=== PATIENT | male | born 1955 | race Caucasian/White ===

== ENCOUNTER 2022-04-21 09:09 | Inpatient (IN) | payer MEDICARE, OTHER ==
[~2022-04-21] VITALS: Ht 172.7 cm; Wt 70.3 kg
[2022-04-21] MEDS ORDERED: ONDANSETRON HCL INJ 2MG/ML 2ML 2 MG/ML VIAL IV STA (09:29)
[2022-04-21] MEDS ORDERED: Morphine 4mg INJECTION 4 MG/ML INJ IV ONE (09:30)
[2022-04-21 10:23] LABS: CLARITY,URINE CLOUDY (CLEAR); COLOR,URINE YELLOW (YELLOW); KETONES,URINE NEGATIVE (NEGATIVE); LEUKOCYTE ESTERASE ,URINE NEGATIVE (NEGATIVE); NITRITE,URINE NEGATIVE (NEGATIVE); PROTEIN,URINE DIPSTICK NEGATIVE (NEGATIVE); URINE UROBILINOGEN 1 mg/dL (0.2 - 1)
[2022-04-21 10:41] LABS: BACTERIA,URINE FEW /HPF; EPITHELIAL CELLS,URINE FEW /LPF; RBC,URINE 0-5 /HPF (0-5)
[2022-04-21 10:52] LABS: BASOPHILS # (AUTO) 0.1 (0.0-0.1); BASOPHILS % 0.9 % (0.0-1.0); EOSINOPHILS # (AUTO) 0.3 (0.0-0.4); EOSINOPHILS % 3.8 % (0.0-6.0); HEMATOCRIT 42.3 % (38.2-49.6); HEMOGLOBIN 12.9 g/dL (14.0-18.0); LYMPHOCYTES # (AUTO) 1.4 (1.0-3.2); LYMPHOCYTES % 21.5 % (18.0-39.1); MEAN CORPUSCULAR HEMOGLOBIN 23.4 pg (28-32); MEAN CORPUSCULAR HGB CONC 30.5 g/dL (31-35); MEAN CORPUSCULAR VOLUME 76.8 fL (81-99); MONOCYTES # (AUTO) 0.6 (0.2-0.8); MONOCYTES % 8.3 % (4.4-11.3); NEUTROPHILS # (AUTO) 4.3 (2.1-6.9); NEUTROPHILS % 65.2 % (38.7-80.0); PLATELET COUNT 375 x10e3/uL (140-360); RED BLOOD COUNT 5.51 x10e6/uL (4.3-5.7); RED CELL DISTRIBUTION WIDTH 15.4 % (11.7-14.4)
[2022-04-21 11:05] LABS: INR 0.85; PROTHROMBIN TIME 12.4 seconds (11.9-14.5)
[2022-04-21 11:06] LABS: PARTIAL THROMBOPLASTIN TIME 30.8 seconds (23.8-35.5)
[2022-04-21] MEDS ORDERED: Clindamycin INJ 150 MG/ML 600 MG Vial ONE (11:08)
[2022-04-21] MEDS ORDERED: SODIUM CHLORIDE 0.9% 100 ML ONE (11:08)
[2022-04-21 11:10] LABS: ALBUMIN 3.6 g/dL (3.5-5.0); ALBUMIN/GLOBULIN RATIO 1.2 (0.8-2.0); ANION GAP 13.6 mmol/L (8-16); CALCIUM 8.6 mg/dL (8.4-10.2); CREATININE, SERUM 0.85 mg/dL (0.72-1.25); POTASSIUM 4.6 mmol/L (3.5-5.1)
[2022-04-21] MEDS: SODIUM CHLORIDE 0.9% 1000ML 1,000 ML IV SCH (12:49)
[2022-04-21 13:08] VITALS: BP_SYST 119; BP_DIAS 55; BP_DIAS 56
[2022-04-21] MEDS ORDERED: tylenol #3 PO (15:09)
[2022-04-21] MEDS ORDERED: PROVENTIL HFA6.7 GM INH (15:09)
[2022-04-21] MEDS ORDERED: TRELEGY ELLIPT1 EACH IH (15:09)
[2022-04-21] MEDS: Morphine 4mg INJECTION 4 MG/ML INJ IV PRN ×2 (17:14→23:45)
[2022-04-21] MEDS: CLINDAMYCIN 600MG / 50ML 50 ML IV SCH ×2 (18:26→23:48)
[2022-04-21] MEDS ORDERED: ACETAMINOPHEN 325 MG TAB PO PRN (19:45)
[2022-04-21 20:05] VITALS: BP 119/68
[2022-04-21] MEDS: ALBUTEROL/IPRATROPIUM 3 ML NEB NEB PRN (20:10)
[2022-04-21] MEDS ORDERED: HOME MEDICATION--PATIENTS OWN INH PRN (20:30)
[2022-04-21 21:12] VITALS: BP 119/68
[2022-04-22] VITALS (9 sets, daily range): BP systolic 94–134; BP diastolic 56–70
[2022-04-22] MEDS: SODIUM CHLORIDE 0.9% 1000ML 1,000 ML IV SCH ×3 (01:05→14:25)
[2022-04-22] MEDS: CLINDAMYCIN 600MG / 50ML 50 ML IV SCH ×4 (05:43→23:22)
[2022-04-22 05:55] LABS: BASOPHILS # (AUTO) 0.1 (0.0-0.1); BASOPHILS % 0.7 % (0.0-1.0); EOSINOPHILS # (AUTO) 0.2 (0.0-0.4); EOSINOPHILS % 3.1 % (0.0-6.0); HEMATOCRIT 38.4 % (38.2-49.6); HEMOGLOBIN 11.4 g/dL (14.0-18.0); LYMPHOCYTES # (AUTO) 1.6 (1.0-3.2); LYMPHOCYTES % 23.7 % (18.0-39.1); MEAN CORPUSCULAR HEMOGLOBIN 22.8 pg (28-32); MEAN CORPUSCULAR HGB CONC 29.7 g/dL (31-35); MEAN CORPUSCULAR VOLUME 76.8 fL (81-99); MONOCYTES # (AUTO) 0.7 (0.2-0.8); MONOCYTES % 10.3 % (4.4-11.3); NEUTROPHILS # (AUTO) 4.2 (2.1-6.9); NEUTROPHILS % 61.9 % (38.7-80.0); PLATELET COUNT 333 x10e3/uL (140-360); RED CELL DISTRIBUTION WIDTH 15.3 % (11.7-14.4)
[2022-04-22 06:24] LABS: ANION GAP 12.4 mmol/L (8-16); CALCIUM 8.1 mg/dL (8.4-10.2); CREATININE, SERUM 0.84 mg/dL (0.72-1.25); POTASSIUM 4.4 mmol/L (3.5-5.1)
[2022-04-22 06:49] LABS: MAGNESIUM 1.9 MG/DL (1.3-2.1)
[2022-04-22] MEDS: NICOTINE 14 MG/EA PATCH TOP SCH (08:20)
[2022-04-22] MEDS: DOCUSATE SODIUM 100 MG CAP PO SCH (08:20)
[2022-04-22] MEDS: ONDANSETRON HCL INJ 2MG/ML 2ML 2 MG/ML VIAL IV PRN ×3 (08:20→23:23)
[2022-04-22] MEDS: SENNOSIDES 8.6 MG TAB PO SCH (08:20)
[2022-04-22] MEDS: Morphine 4mg INJECTION 4 MG/ML INJ IV PRN ×3 (08:21→23:23)
[2022-04-22] MEDS: VILANTEROL INH SCH (08:29)
[2022-04-22] MEDS: FLUTICASONE FUROATE INH SCH (08:29)
[2022-04-22] MEDS: UMECLIDINIUM INH SCH (08:29)
[2022-04-22] MEDS ORDERED: FERROUS SULFATE 325 MG TAB PO SCH (09:30)
[2022-04-22 12:35] LABS: FERRITIN 118.67 ng/mL (21.81-274.66)
[2022-04-22] MEDS ORDERED: FENTANYL CITRATE/PF 100MCG/2 ML INJ ONE (13:55)
[2022-04-22] MEDS ORDERED: MIDAZOLAM HCL 2 MG/2 ML VIAL ONE (13:55)
[2022-04-22] MEDS ORDERED: NEOSTIGMINE 1 MG/ML 10ML VIAL ONE (15:29)
[2022-04-22] MEDS ORDERED: BUPIVACAINE HC 0.75% PF 10ML VIAL INJ ONE ×2 (15:29→16:07)
[2022-04-22] MEDS ORDERED: LIDOCAINE HCL 2% LOCAL INJ 5 ML SDV VIAL INJ ONE (17:13)
[2022-04-22] MEDS ORDERED: POVIDONE IODINE 0.05% 0.05 % ML PO ONE (17:13)
[2022-04-22] MEDS ORDERED: PROPOFOL IV EMULSION 10 MG/ML 20 ML VIAL ONE (17:13)
[2022-04-22] MEDS ORDERED: ONDANSETRON HCL INJ 2MG/ML 2ML 2 MG/ML VIAL ONE (17:13)
[2022-04-22] MEDS ORDERED: DEXAMETHASONE SOD PHOS INJ 4 MG/ML SDV ONE (17:13)
[2022-04-22] MEDS ORDERED: SEVOFLURANE INHAL SOLN 250 ML PEN BTL ONE (17:13)
[2022-04-22] MEDS ORDERED: ACETAMINOPHEN/CODEINE 300MG - 30MG TAB PO PRN (18:00)
[2022-04-22] MEDS ORDERED: BACITRACIN ZINC 15 GM OINT TOP SCH (18:30)
[2022-04-22] MEDS: ALBUTEROL/IPRATROPIUM 3 ML NEB NEB PRN (19:56)
[2022-04-23] MEDS: ALBUTEROL/IPRATROPIUM 3 ML NEB NEB PRN (00:05)
[2022-04-23] MEDS: SODIUM CHLORIDE 0.9% 1000ML 1,000 ML IV SCH ×2 (04:52→22:14)
[2022-04-23 05:18] VITALS: BP 110/65
[2022-04-23] MEDS: ONDANSETRON HCL INJ 2MG/ML 2ML 2 MG/ML VIAL IV PRN ×3 (06:37→17:40)
[2022-04-23] MEDS: Morphine 4mg INJECTION 4 MG/ML INJ IV PRN ×4 (06:37→22:15)
[2022-04-23 06:38] LABS: BASOPHILS % 0.3 % (0.0-1.0); HEMATOCRIT 38.7 % (38.2-49.6); HEMOGLOBIN 11.4 g/dL (14.0-18.0); LYMPHOCYTES # (AUTO) 0.8 (1.0-3.2); LYMPHOCYTES % 13.4 % (18.0-39.1); MEAN CORPUSCULAR HEMOGLOBIN 23.1 pg (28-32); MEAN CORPUSCULAR HGB CONC 29.5 g/dL (31-35); MEAN CORPUSCULAR VOLUME 78.5 fL (81-99); MONOCYTES # (AUTO) 0.5 (0.2-0.8); MONOCYTES % 8.1 % (4.4-11.3); NEUTROPHILS # (AUTO) 4.5 (2.1-6.9); NEUTROPHILS % 77.5 % (38.7-80.0); PLATELET COUNT 338 x10e3/uL (140-360); RED BLOOD COUNT 4.93 x10e6/uL (4.3-5.7); RED CELL DISTRIBUTION WIDTH 15.4 % (11.7-14.4)
[2022-04-23] MEDS: CLINDAMYCIN 600MG / 50ML 50 ML IV SCH ×3 (06:38→17:39)
[2022-04-23 07:14] LABS: ALBUMIN/GLOBULIN RATIO 0.9 (0.8-2.0); ANION GAP 13.9 mmol/L (8-16); CALCIUM 8.4 mg/dL (8.4-10.2); CREATININE, SERUM 0.77 mg/dL (0.72-1.25); MAGNESIUM 1.9 MG/DL (1.3-2.1); POTASSIUM 4.9 mmol/L (3.5-5.1)
[2022-04-23 08:13] VITALS: BP 112/65
[2022-04-23 08:21] VITALS: BP 112/65
[2022-04-23] MEDS: FLUTICASONE FUROATE INH SCH (09:00)
[2022-04-23] MEDS: VILANTEROL INH SCH (09:00)
[2022-04-23] MEDS: UMECLIDINIUM INH SCH (09:00)
[2022-04-23] MEDS: FERROUS SULFATE 325 MG TAB PO SCH (09:24)
[2022-04-23] MEDS: NICOTINE 14 MG/EA PATCH TOP SCH (09:24)
[2022-04-23] MEDS: DOCUSATE SODIUM 100 MG CAP PO SCH (09:24)
[2022-04-23] MEDS: SENNOSIDES 8.6 MG TAB PO SCH (09:24)
[2022-04-23] MEDS: BACITRACIN ZINC 15 GM OINT TOP SCH (09:25)
[2022-04-23 12:32] VITALS: BP 115/71
[2022-04-23 16:59] VITALS: BP 107/56
[2022-04-23 20:00] VITALS: BP 132/61
[2022-04-24] VITALS (9 sets, daily range): BP systolic 102–119; BP diastolic 57–70
[2022-04-24] MEDS: CLINDAMYCIN 600MG / 50ML 50 ML IV SCH ×5 (00:08→23:54)
[2022-04-24] MEDS: Morphine 4mg INJECTION 4 MG/ML INJ IV PRN ×6 (02:33→23:54)
[2022-04-24] MEDS: SODIUM CHLORIDE 0.9% 1000ML 1,000 ML IV SCH ×2 (06:54→23:15)
[2022-04-24] MEDS: DOCUSATE SODIUM 100 MG CAP PO SCH (08:44)
[2022-04-24] MEDS: FERROUS SULFATE 325 MG TAB PO SCH (08:44)
[2022-04-24] MEDS: NICOTINE 14 MG/EA PATCH TOP SCH (08:44)
[2022-04-24] MEDS: SENNOSIDES 8.6 MG TAB PO SCH (08:44)
[2022-04-24] MEDS: FLUTICASONE FUROATE INH SCH (08:45)
[2022-04-24] MEDS: UMECLIDINIUM INH SCH (08:45)
[2022-04-24] MEDS: VILANTEROL INH SCH (08:45)
[2022-04-24] MEDS: BACITRACIN ZINC 15 GM OINT TOP SCH (09:00)
[2022-04-24] MEDS: ALBUTEROL/IPRATROPIUM 3 ML NEB NEB PRN (19:15)
[2022-04-25] VITALS (8 sets, daily range): BP systolic 104–133; BP diastolic 62–81
[2022-04-25] MEDS: Morphine 4mg INJECTION 4 MG/ML INJ IV PRN ×6 (04:46→22:14)
[2022-04-25] MEDS: CLINDAMYCIN 600MG / 50ML 50 ML IV SCH ×4 (06:08→23:23)
[2022-04-25] MEDS: FLUTICASONE FUROATE INH SCH (09:00)
[2022-04-25] MEDS: VILANTEROL INH SCH (09:00)
[2022-04-25] MEDS: UMECLIDINIUM INH SCH (09:00)
[2022-04-25] MEDS: ONDANSETRON HCL INJ 2MG/ML 2ML 2 MG/ML VIAL IV PRN ×3 (09:37→17:57)
[2022-04-25] MEDS: DOCUSATE SODIUM 100 MG CAP PO SCH (09:43)
[2022-04-25] MEDS: FERROUS SULFATE 325 MG TAB PO SCH (09:44)
[2022-04-25] MEDS: NICOTINE 14 MG/EA PATCH TOP SCH (09:44)
[2022-04-25] MEDS: SENNOSIDES 8.6 MG TAB PO SCH (09:44)
[2022-04-25] MEDS: BACITRACIN ZINC 15 GM OINT TOP SCH (09:47)
[2022-04-25] MEDS: ALBUTEROL/IPRATROPIUM 3 ML NEB NEB PRN (10:49)
[2022-04-25] MEDS: SODIUM CHLORIDE 0.9% 1000ML 1,000 ML IV SCH ×2 (21:35→22:25)
[2022-04-26] VITALS: BP 114/73
[2022-04-26] MEDS: Morphine 4mg INJECTION 4 MG/ML INJ IV PRN ×3 (02:19→09:58)
[2022-04-26 04:00] VITALS: BP 129/69
[2022-04-26] MEDS: CLINDAMYCIN 600MG / 50ML 50 ML IV SCH (06:11)
[2022-04-26 06:44] LABS: BASOPHILS # (AUTO) 0.1 (0.0-0.1); BASOPHILS % 0.9 % (0.0-1.0); EOSINOPHILS # (AUTO) 0.5 (0.0-0.4); EOSINOPHILS % 7.4 % (0.0-6.0); HEMATOCRIT 37.6 % (38.2-49.6); HEMOGLOBIN 10.9 g/dL (14.0-18.0); LYMPHOCYTES # (AUTO) 1.5 (1.0-3.2); LYMPHOCYTES % 23.3 % (18.0-39.1); MEAN CORPUSCULAR HEMOGLOBIN 23.1 pg (28-32); MEAN CORPUSCULAR VOLUME 79.7 fL (81-99); MONOCYTES # (AUTO) 0.7 (0.2-0.8); MONOCYTES % 10.6 % (4.4-11.3); NEUTROPHILS # (AUTO) 3.6 (2.1-6.9); NEUTROPHILS % 57.5 % (38.7-80.0); PLATELET COUNT 337 x10e3/uL (140-360); RED BLOOD COUNT 4.72 x10e6/uL (4.3-5.7); RED CELL DISTRIBUTION WIDTH 15.3 % (11.7-14.4)
[2022-04-26 07:03] LABS: ALBUMIN/GLOBULIN RATIO 1.1 (0.8-2.0); CALCIUM 8.3 mg/dL (8.4-10.2); CREATININE, SERUM 0.77 mg/dL (0.72-1.25)
[2022-04-26 07:47] VITALS: BP 107/82
[2022-04-26 08:08] VITALS: BP 107/82
[2022-04-26] MEDS: DOCUSATE SODIUM 100 MG CAP PO SCH (08:42)
[2022-04-26] MEDS: SENNOSIDES 8.6 MG TAB PO SCH (08:43)
[2022-04-26] MEDS: NICOTINE 14 MG/EA PATCH TOP SCH (08:43)
[2022-04-26] MEDS: FERROUS SULFATE 325 MG TAB PO SCH (08:43)
[2022-04-26] MEDS: BACITRACIN ZINC 15 GM OINT TOP SCH (08:45)
[2022-04-26] MEDS: UMECLIDINIUM INH SCH (09:00)
[2022-04-26] MEDS: FLUTICASONE FUROATE INH SCH (09:00)
[2022-04-26] MEDS: VILANTEROL INH SCH (09:00)
[2022-04-26] MEDS ORDERED: NICOTINE PATCH1 EAC1 TOP (09:12)
[2022-04-26] MEDS: ONDANSETRON HCL INJ 2MG/ML 2ML 2 MG/ML VIAL IV PRN (09:58)
[2022-04-26 11:38] VITALS: BP 138/82
[2022-04-26] MEDS ORDERED: CLINDAMYCIN HCL 150 MG CAP PO SCH (12:00)
== END 2022-04-26 12:02 | disposition home or self-care (01) | DRG 727 ==
LOC: ER 09:22 → ERHOLD 11:33 → MED/SURG3 13:02
PROVIDERS: ADMIT Internal Medicine; ATTEND Internal Medicine
PROC: 0VTTXZZ Resection of Prepuce, External Approach (ICD-10-PCS; principal; 2022-04-22 15:23)
DX: N48.22 Cellulitis of corpus cavernosum and penis (principal); J96.01 Acute respiratory failure with hypoxia; I96 Gangrene, not elsewhere classified; J44.1 Chronic obstructive pulmonary disease with (acute) exacerbation; N39.0 Urinary tract infection, site not specified; E87.1 Hypo-osmolality and hyponatremia; J44.9 Chronic obstructive pulmonary disease, unspecified; D64.9 Anemia, unspecified; D50.9 Iron deficiency anemia, unspecified; Z20.822 Contact with and (suspected) exposure to COVID-19; Z79.51 Long term (current) use of inhaled steroids; Z99.81 Dependence on supplemental oxygen; Z98.890 Other specified postprocedural states; F17.290 Nicotine dependence, other tobacco product, uncomplicated
CPT/HCPCS: 36415; 71046; 80048; 80053; 81001; 82607; 82728; 82746; 83540; 83735; 84466; 85025; 85045; 85610; 85730; 87040; 87071; 87075; 87086; 87205; 88304; 94640; 94799; 96361; 99284; J1100; J2001; J2250; J2270; J2405; J2543; J2710; J3010; J7030; J7050